=== PATIENT | female | born 1975 | race Caucasian/White ===

== ENCOUNTER 2017-02-18 11:55 | Emergency (ER) | payer MEDICAID ==
[2017-02-18 12:11] VITALS: TEMP 98.6
[2017-02-18] MEDS ORDERED: KETOROLAC 15 MG/1 ML SDV IVP ONE (13:05)
[2017-02-18 13:11] LABS: % IMMATURE GRANULYOCYTES 0.2 % (0.0-1.1); ABSOLUTE IMMATURE GRANULOCYTES 0.01 10^3/uL (0.00-0.10); ADD DIFF? NO; ADD MORPH? NO; ADD SCAN? NO; ATYPICAL LYMPHOCYTE FLAG 10 (0-99); FRAGMENT RBC FLAG 0 (0-99); HEMATOCRIT 44.1 % (38.0-47.0); HEMOGLOBIN 15.4 g/dL (12.6-16.3); LEFT SHIFT FLG 0 (0-99); LIPEMIA HEMOLYSIS FLAG 90 (0-99); MEAN CELL HEMOGLOBIN 32.9 pg (27.9-34.1); MEAN CELL HEMOGLOBIN CONCENTR. 34.9 g/dL (32.4-36.7); MEAN CELL VOLUME 94.2 fL (81.5-99.8); MEAN PLATELET VOLUME 8.5 fL (8.7-11.7); PLATELET CLUMPS FLAG 0 (0-99); PLATELET COUNT 235 10^3/uL (150-400); RED BLOOD CELL COUNT 4.68 10^6/uL (4.18-5.33)
[2017-02-18 13:19] LABS: SEDIMENTATION RATE 33 MM/HR (0-20)
[2017-02-18] MEDS ORDERED: TRIAMCINOLONE ACETONIDE 40 MG/ML VIAL ONE (13:20)
[2017-02-18 13:33] LABS: CALCIUM 9.2 mg/dL (8.5-10.4); CREATININE 1.1 mg/dL (0.6-1.0); URIC ACID 5.4 mg/dL (2.5-6.8)
--- NOTE | 2017-02-18 14:49 | EDPHY ---
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 She did not fall and reports the pain was only moderate at that time. 3-4 days thereafter she developed some mild knee swelling which has steadily increased over ensuing weeks. She now has 7/10 pain that made sleep difficult last night. She reports that the pain does not seem to worsen with walking. She reports that while she has had crepitance in that knee in the past she has not had any recent crepitance. She did not feel a pop during the initial injury nor has she felt any instability. Her background history is notable for some immunosuppression on parenteral Opdivo q 2 weeks for metastatic cervical cancer with the last injection 1 week ago. She is accompanied by her ROS: She denies any fevers. No other constitutional symptoms HEENT: No URI symptoms or other complaints Pulmonary: No pleuritic pain or chest pain. No dyspnea. Cardiovascular: She has new onset of leg swelling and ankle swelling associated with her knee swelling has transpired over the past 3 days or so. However, she denies any significant ankle pain she does have mild leg ache posteriorly in the calf. No lightheadedness or presyncopal symptoms. GI: No recent nausea vomiting or belly pain : No symptoms Integumentary: No skin rash. 10 point ROS is otherwise negative Past Medical/Surgical History: Metastatic cervical cancer No history of DVT No family history of DVT Smoking Status: Unknown if ever smoked Physical Exam: Physical Exam Vital signs are normal. General: No acute distress Eyes: Pupils equal and react to light. Extraocular motions are intact. No conjunctival injection Lungs: No respiratory distress. Cardiac: Brisk capillary refill is intact throughout. Pulses are 2+ and symmetric in the affected extremity - dorsalis pedis and posterior tibialis pulses Skin: No rash or pallor. Extremities: Atraumatic normal except for left knee Left knee: Patient has a moderate size effusion with slight warmth to touch but no skin erythema. No ecchymosis. There is also slight fullness in the popliteal fossa on the left. Ming's is negative for laxity. Varus and valgus stress without pain or laxity. She has mild calf tenderness on the left side as well associated with swelling. Homans is negative. Mild circumferential ankle swelling without focal tenderness. She has no laxity to the ankle Neuro: Alert and oriented x3 with no sensorimotor deficits in the affected extremity. Initial differential diagnosis: Meniscal injury with effusion, gout, pseudogout , septic arthritis unlikely, DVT, Akhtar cyst, Bony Mets Constitutional: Initial Vital Signs Temperature (C) 37 C 02/18/17 12:07 Heart Rate 87 02/18/17 12:07 Respiratory Rate 18 02/18/17 12:07 Blood Pressure 123/91 H 02/18/17 12:07 O2 Sat (%) 96 02/18/17 12:07 O2 Delivery Mode Room Air Allergies/Adverse Reactions: amoxicillin [Amoxicillin] Allergy (Severe, Verified 09/05/09 13:16) Hives Home Medications: Medication Instructions Recorded Optivo 02/18/17 Tyrosine 02/18/17 traMADol [Ultram 50 mg (*)] 50 - 100 mg PO Q4 PRN #20 tab 02/18/17 MDM/Departure - MDM Diagnostics: X-ray: Negative for bony metastases or other significant abnormalities except for effusion by my interpretation Imaging: Discussed imaging studies w/ call person Radiologist (Abiodun Daily, radiologist called me regarding the Doppler ultrasound study results), I viewed and interpreted images myself Procedures: Procedure: Knee aspiration indication effusion in patient with potential immune suppression After verbal consent using a lateral approach, chlorhexidine scrub, 27 gauge needle with 1% plain lidocaine anesthesia-1.5 mL with good effect and proceed with an 18 gauge needle, 60 mL syringe with 55 mL of straw-colored fluid that is not translucent. Patient tolerated this well. Bandage was placed thereafter an Jules wrap is applied (patient brought her own Jules wrap). There were no complications. I elected not to inject Kenalog due to the non translucent nature of the fluid that is not clearly gouty. Cannot entirely rule out septic joint that I think is unlikely. Medications Given: Discontinued Medications Ketorolac Tromethamine (Toradol) 15 mg IVP EDNOW ONE Stop: 02/18/17 13:06 Last Admin: 02/18/17 13:20 Dose: 15 mg ED Course/Re-evaluation: IV is established. Patient's knee pain history with Toradol IV with partial relief. She also had relief after the knee was tapped with 60 mL of fluid off. I counseled regarding study findings. While D-dimer was positive her Doppler ultrasound was negative for DVT. Akhtar cyst is revealed given her minor injury , Akhtar cyst and knee effusion I think most likely this is inflammatory effusion and response to meniscal injury and I counseled her regarding this. At 3:00 p.m. I discussed the case with Dr. Love will follow up on her cell count from the knee tap and contact the patient for any concerns for significant elevation of her leukocytes from the knee tap in regards to potential infectious etiology. The patient's knee tap is consistent with inflammatory etiology rather than septic knee joint with negative Gram stain and the low white count. The patient will follow up with Orthopedics regarding her knee effusion. Crystal analysis to rule out gout is also still pending. - Depart Disposition: Home, Routine, Self-Care Clinical Impression: Knee effusion, left Akhtar's cyst of knee Qualifiers: Laterality: left Qualified Code(s): M71.22 - Synovial cyst of popliteal space [ Akhtar], left knee Condition: Good Instructions: Bakers Cyst (ED), Swollen Knee Joint (ED) Additional Instructions: Diagnosis: 1. Knee effusion 2. Akhtar cyst Plan: Aleve or ibuprofen as [id number] for swelling and pain Jules wrap Elevate the leg whenever you are able Tylenol and tramadol in addition if needed for pain control. No driving, alcohol or come tramadol Follow up with orthopedic physician listed below for further evaluation of her knee. Return for any significant worsening of her symptoms despite the plan. Prescriptions: traMADol [Ultram 50 mg (*)] 50 - 100 mg PO Q4 PRN #20 tab PRN Reason: breakthrough pain Referrals: NONE *PRIMARY CARE P,. [Primary Care Provider] - As per Instructions Naeem Baker MD [Medical Doctor] - As per Instructions
[2017-02-18 15:05] VITALS: BP 124/73; PULSE 78; RESP 16; O2SAT 95
[2017-02-18 15:28] LABS: WBC, SYNOVIAL FLUID 6344 /mm3 (0-150)
[2017-02-18 15:39] LABS: CRYSTALS, SYNOVIAL FLUID NONE SEEN (NONE SEEN)
== END 2017-02-18 14:40 | disposition home or self-care (01) ==
LOC: CED 11:55
PROC: 0S9D3ZZ Drainage of Left Knee Joint, Percutaneous Approach (ICD-10-PCS; principal; 2017-02-18)
DX: M71.22 Synovial cyst of popliteal space [Baker], left knee (principal); Z85.41 Personal history of malignant neoplasm of cervix uteri
CPT/HCPCS: 73560-PO; 80048-PO; 84550-PO; 85025-PO; 85378-PO; 85652-PO; 93971-PO; 96374; J1885; J3301